=== PATIENT | female | born 1990 | race Caucasian/White ===

== ENCOUNTER 2016-09-17 13:30 | Inpatient (IN) | payer MEDICAID, OTHER ==
[~2016-09-17] VITALS: Ht 144.8 cm; Wt 63.3 kg
--- NOTE | 2016-09-17 17:47 | RADRPT ---
PROCEDURE: OB Ultrasound. CLINICAL INDICATION: Positive test. History of gestational trophoblastic disease. TECHNIQUE: Ultrasound of the pelvis was performed with transabdominal sonography in the axial and sagittal planes. COMPARISON: No prior study is available for comparison. FINDINGS: There is no intrauterine gestational sac. There is a heterogeneous mass within the endometrial tyler l with multiple small cystic regions measuring between 0.2 cm and 0.6 cm. There is a central fluid collection within the endometrium measuring 1.0 x 6.5 x 8.0 cm. The uterus is enlarged measuring 17. 3 x 6.0 x 10.5 cm. The ovaries are not visualized. There is no other pelvic mass or free fluid. IMPRESSION: 1. No intrauterine gestational sac. 2. Abnormal fluid collection and heterogeneous mass with multiple small cystic regions within the e ndometrial canal. This is consistent with gestational trophoblastic disease. 3. Ovaries not visualized. RPTAT: QQ .Cesar Welsh MD, MD Date Time Electronically viewed and signed by .Cesar Welsh MD, on 09/17/2016 17:46 .R/
--- NOTE | 2016-09-17 17:50 | ERD ---
ER Documentation Chief Complaint Date/Time DATE: 09/17/16 TIME: 17:46 Chief Complaint 12 WKS WITH NO VAG BLEED NO ABD PAIN. SENT BY OB FOR SUMI WEBER This is a 26-year-old female who presents to the emergency department today for further evaluation after being told that there was something wrong with her . Patient states she is approximately 12 weeks denies any abdominal pain, vaginal bleeding, nausea vomiting, fevers or chills ROS All systems reviewed and are negative except as per history of present illness. Allergies Allergies: Coded Allergies: No Known Allergy (Unverified , 09/17/16) PMhx/Soc Medical and Surgical Hx: pt denies Surgical Hx Hx Alcohol Use: No Hx Substance Use: No Hx Tobacco Use: No Smoking Status: Current every day smoker Physical Exam Vitals Vital Signs Date Time Temp Pulse Resp B/P Pulse Ox O2 Delivery O2 Flow Rate FiO2 09/17/16 13:36 98.6 94 20 120/74 98 Physical Exam Const: NAD Head: Atraumatic Eyes: Normal Conjunctiva ENT: Normal External Ears, Nose and Mouth. Neck: Full range of motion..~ No meningismus. Resp: Clear to auscultation bilaterally Cardio: Regular rate and rhythm, no murmurs Abd: Soft, non tender, non distended. Normal bowel sounds Skin: No petechiae or rashes Ext: No cyanosis, or edema Neur: Awake and alert Psych: Normal Mood and Affect Result Diagram: 09/17/16 1750 09/17/16 1750 Results 24 hrs Laboratory Tests Test 09/17/16 17:50 Alanine Aminotransferase (ALT/SGPT) 96IU/L Albumin 4.3g/dl Albumin/Globulin Ratio 1.26 Alkaline Phosphatase 87IU/L Anion Gap 19 Aspartate Amino Transf (AST/SGOT) 58IU/L Basophils # 0.110^3/ul Basophils % 0.4% Beta HCG, Quantitative 900442.0mIU/ml Blood Urea Nitrogen 11mg/dl Calcium Level 9.9mg/dl Carbon Dioxide Level 21mmol/L Chloride Level 103mmol/L Creatinine 0.50mg/dl Direct Bilirubin 0.00mg/dl Eosinophils # 0.110^3/ul Eosinophils % 0.9% Globulin 3.40g/dl Glucose Level 139mg/dl Hematocrit 39.7% Hemoglobin 13.5g/dl Indirect Bilirubin 0.0mg/dl Lymphocytes # 2.610^3/ul Lymphocytes % 22.4% Mean Corpuscular Hemoglobin 31.4pg Mean Corpuscular Hemoglobin Concent 34.0g/dl Mean Corpuscular Volume 92.3fl Mean Platelet Volume 10.5fl Monocytes # 0.810^3/ul Monocytes % 6.7% Neutrophils # 8.010^3/ul Neutrophils % 69.3% Nucleated Red Blood Cells # 0.010^3/ul Nucleated Red Blood Cells % 0.0/100WBC Platelet Count 44871^3/UL Potassium Level 3.4mmol/L Red Blood Count 4.3010^6/ul Red Cell Distribution Width 12.6% Sodium Level 140mmol/L Total Bilirubin 0.0mg/dl Total Protein 7.7g/dl White Blood Count 11.510^3/ul Current Medications Medications (Trade) Dose Ordered Sig/Windy Route PRN Reason Start Time Stop Time Status Last Admin Dose Admin Ondansetron HCl (Zofran Inj) 4 mg BRIDGE ORDER PRN IV NAUSEA AND/OR VOMITING 09/17/16 21:00 09/18/16 20:59 Acetaminophen (Tylenol Tab) 650 mg ER BRIDGE PRN PO MILD PAIN/FEVER 09/17/16 21:00 09/18/16 20:59 DIAGNOSTIC IMAGING REPORT Patient: JAVIER HOGAN : 1990 Age: 26 Sex: F MR #: [id number] DOS: 09/17/16 0000 Ordering MD: REJI HOOVER PA-C [facility] Room[facility]Bed: PROCEDURE: OB Ultrasound. CLINICAL INDICATION: Positive test. History of gestational trophoblastic disease. TECHNIQUE: Ultrasound of the pelvis was performed with transabdominal sonography in the axial and sagittal planes. COMPARISON: No prior study is available for comparison. FINDINGS: There is no intrauterine gestational sac. There is a heterogeneous mass within the endometrial canal with multiple small cystic regions measuring between 0.2 cm and 0.6 cm. There is a central fluid collection within the endometrium measuring 1.0 x 6.5 x 8.0 cm. The uterus is enlarged measuring 17.3 x 6.0 x 10.5 cm. The ovaries are not visualized. There is no other pelvic mass or free fluid. IMPRESSION: 1. No intrauterine gestational sac. 2. Abnormal fluid collection and heterogeneous mass with multiple small cystic regions within the endometrial canal. This is consistent with gestational trophoblastic disease. 3. Ovaries not visualized. RPTAT: QQ .Cesar Welsh MD, Date Time Electronically viewed and signed by .Cesar Welsh MD, on 09/17/2016 17:46 .R/ CC: REJI HOOVER PA-C Procedures/MDM This a 26-year-old female who is 12 weeks who presents to the emergency department today for further evaluation and management. Patient was sent from [facility] for a possible molar and D&C. Patient brought in paperwork from the department of obstetrics and gynecology and division of maternal medicine at [facility] that showed a first trimester ultrasound showing no pole was identified and the uterus cavity was noted to be filled with multiple cystlike structures consistent with a molar . The ultrasound findings were discussed with Dr. Garcia at [facility] and she requested that she be sent to her office for further management. Given these ultrasound findings I did do a complete OB workup here in the emergency department. Laboratory work shows an mildly elevated white blood cell count. She is not anemic. Platelets are within normal limits. Potassium is barely mildly decreased otherwise electro lites are within normal limits. Glucose is within normal limits. Liver function is elevated. UA was pending as well as gonorrhea chlamydia was pending at time of admission Rh status O Positive Beta quant hCG 331374.0 Ultrasound shows no intrauterine gestational sac. There is a heterogeneous mass within the endometrial canal with multiple small cystic regions measuring between 0.2 cm and 0.6 cm. There is a central fluid collection within the endometrium measuring 1.0 x 6.5 x 8.0 cm. This is consistent with gestational trophoblastic disease. There is no other pelvic mass or free fluid. Patient did not have any abdominal pain on physical exam. She denies any nausea vomiting. I placed a call to the laborist personnel analyst, Dr. Ortiz, who came to the evaluate the patient. She requested gonorrhea chlamydia testing. There was an in-depth discussion with the patient and her and the decision was made to admit the patient for a D &C. I discussed the patient again with Dr. He and he has placed admission orders. Any further documentation or orders placed will be completed by the attending personnel analyst or the laborist personnel analyst. Patient's vitals are stable at time of signout to Dr. He. Departure Diagnosis: Primary Impression: Gestational trophoblastic disease Condition: REJI Mccallum PA-C Sep 17, 2016 17:50
[2016-09-17 18:18] LABS: ADD SCAN DIFF NO
[2016-09-17 18:22] LABS: BASOPHIL # 0.1 10^3/ul (0.0-0.1); BASOPHILS % 0.4 % (0.0-2.0); EOSINOPHILS # 0.1 10^3/ul (0.0-0.5); EOSINOPHILS % 0.9 % (0.0-7.0); HEMATOCRIT 39.7 % (37.0-47.0); HEMOGLOBIN 13.5 g/dl (12.0-16.0); LYMPHOCYTES # 2.6 10^3/ul (0.8-2.9); LYMPHOCYTES % 22.4 % (15.0-51.0); MEAN CORPUSCULAR HEMOGLOBIN 31.4 pg (29.0-33.0); MEAN CORPUSCULAR VOLUME 92.3 fl (82.0-101.0); MEAN PLATELET VOLUME 10.5 fl (7.4-10.4); MONOCYTE # 0.8 10^3/ul (0.3-0.9); MONOCYTES % 6.7 % (0.0-11.0); NEUTROPHILS % 69.3 % (39.0-77.0); PLATELET COUNT 277 10^3/UL (140-415); RED CELL DISTRIBUTION WIDTH 12.6 % (11.5-14.5); WHITE BLOOD COUNT 11.5 10^3/ul (4.8-10.8)
[2016-09-17 19:50] LABS: ALBUMIN 4.3 g/dl (3.3-4.9); POTASSIUM 3.4 mmol/L (3.5-5.1)
[2016-09-17 19:52] LABS: CREATININE 0.5 mg/dl (0.44-1.00)
[2016-09-17 19:53] LABS: ALBUMIN/GLOBULIN RATIO 1.26; TOTAL PROTEIN 7.7 g/dl (6.1-8.1)
[2016-09-17 19:54] LABS: CALCIUM 9.9 mg/dl (8.4-10.2)
[2016-09-17] MEDS ORDERED: ONDANSETRON 4 MG INJ IV PRN (21:00)
[2016-09-17] MEDS ORDERED: ACETAMINOPHEN 325 MG TAB PO PRN (21:00)
[2016-09-17 21:59] VITALS: TEMP 98.7
[2016-09-17 22:30] VITALS: Ht 144.8 cm; Wt 63.3 kg
[2016-09-17 22:42] VITALS: BP 117/63; RESP 18
[2016-09-18] VITALS (15 sets, daily range): BP systolic 105–117; BP diastolic 58–68; PULSE 78–107; RESP 13–18
--- NOTE | 2016-09-18 00:03 | CONS ---
Date/Time of Note Date/Time of Note DATE: 09/17/16 TIME: 23:53 Assessment/Plan Assessment/Plan Chief Complaint/Hosp Course Complete Molar . Increased risk for GTN due to size and HCG level discussed. HCG elevated > 100,000 Uterine size about 18 weeks size Finding discussed with the patient and her partner in detail. science interpreter was used for interpretation Need for suction every 8 hours as well as preop workup and post suction D&C workup for prolonged period up to 1 year discussed with the patient in detail Increased risk for GTN discussed with the patient. Explained that she needs to have frequent surveillance follow-up with repeat hCG every week and later monthly as well as reliable contraception up to about a year. Possibility of need for chemotherapy in some cases as were discussed with the patient and her partner Increased risk of bleeding during suction criticize and need for blood transfusion also discussed with the patient and her partner in detail. Risk of suction D&C including risk of infection, bleeding, damage to surrounding structures and risk of uterine perforation as well as risk of blood transfusion including but not limited to blood borne infection including HIV, hepatitis B and C and transfusion reactions discussed with the patient in detail. Informed consent obtained Patient will be booked tomorrow in the OR. She understands that the case will be signed off to the upcoming CLINICAL RN. Will keep the patient n.p.o. overnight Type and cross 4 units of blood Checking blood sugar every 4 hours when his n.p.o. and coverage with insulin sliding scale as needed Doxycycline 100 mg IV prior to be taken to the OR, as well as 200 mg oral dose postprocedure CXR Problems: Consultation Date/Type/Reason Admit Date/Time Sep 17, 2016 at 20:31 Date of Consultation: Sep 17, 2016 Type of Consultation: PEDIATRIC DIETICIAN Hx of Present Illness 26-year-old with amenorrhea since March 28, 2016 for the last 24 weeks , was sent from [facility] due to concern for molar noted in ultrasound. Patient denies any vaginal bleeding, abdominal pain, contractions, leaking of fluid , nausea vomiting or any other symptoms. Per patient her cycles has been irregular. was planned. She had one visit when she was 5 weeks with her OB clinic then she missed follow-up until about a couple of days ago due to insurance issues. She had an ultrasound ordered couple of days ago at [facility] that was abnormal due to concern for molar . She was sent to [facility] today and was seen by her OB in the clinic and was then referred to [facility] emergency room for D&C. Patient had an ultrasound here at [facility] that shows the same finding. Uterus enlarged with heterogeneous material concerning for molar noted in pelvic ultrasound. Patient reports history of gestational diabetes in the last 2 pregnancies. Denies any pre-gestational diabetes and never been on antidiabetic medication between pregnancies. She was recently about a month ago started on insulin due to elevated blood sugar. Per patient she uses insulin 4 times a day from 2 different types of insulin but she does not know the name or dosage of her insulin. Past medical history: Gestational diabetes in the last 2 pregnancies Never been tested between the pregnancies Past surgical history: None Social history: Denies smoking, drinking alcohol or using any drugs OB history: Status post 3 LMP March 28, 2016 Cycles has been always irregular Current was planned Father of the baby same for the last 2 pregnancies Denies any history of abnormal Pap or any known gynecologic problem Medication: vitamin Subjective hx not possible: other (Comfortable. Alert and oriented 4 does not appear to be in any distress) Constitutional: no complaints Eyes: no complaints ENT: no complaints Respiratory: no complaints Cardiovascular: no complaints Gastrointestinal: no complaints Genitourinary: no complaints Musculoskeletal: no complaints Skin: no complaints Neurologic: no complaints Endocrine: no complaints Lymphatic: no complaints Psychological: no complaints Immunologic: no complaints Past Medical History Gestational diabetes in the last 2 pregnancies Past Surgical History Past Surgical Hx: no surgical history Family History Significant Family History: no pertinent family hx Social History Alcohol Use: none Smoking Status: Current every day smoker Drug Use: none Exam/Review of Systems Vital Signs Vitals Vital Signs Date Time Temp Pulse Resp B/P Pulse Ox O2 Delivery O2 Flow Rate FiO2 09/17/16 22:42 98.0 73 18 117/63 99 09/17/16 21:59 Room Air Exam Constitutional: alert, oriented, well developed Psych: nl mood/affect, no complaints Head: atraumatic, normocephalic Eyes: EOMI, nl conjunctiva, nl lids ENMT: nl external ears & nose, nl lips & teeth, nl nasal mucosa & septum Neck: non-tender, supple Respiratory: clear to auscultation, normal air movement Cardiovascular: nl pulses, regular rate and rhythm Gastrointestinal: mass, nl liver, spleen, other (A midline mass up to the level of about 2 cm below the umbilicus, soft and nontender consistent with uterus palpable in the pelvis), soft Genitourinary - Female: uterus (Enlarged and soft size about 18 weeks . Nontender to touch no fullness or tenderness in adnexa, adnexa are not palpable) Musculoskeletal: nl extremities to inspection, nl gait and stance Extremities: normal pulses Neurological: DISTRIBUTION TRANSFORMER ASSEMBLER II-XII intact, nl mental status Results Laboratory Tests Test 09/17/16 17:50 09/17/16 23:02 Alanine Aminotransferase (ALT/SGPT) 96IU/L Albumin 4.3g/dl Albumin/Globulin Ratio 1.26 Alkaline Phosphatase 87IU/L Anion Gap 19 Aspartate Amino Transf (AST/SGOT) 58IU/L Basophils # 0.110^3/ul Basophils % 0.4% Beta HCG, Quantitative 300316.0mIU/ml Blood Urea Nitrogen 11mg/dl Calcium Level 9.9mg/dl Carbon Dioxide Level 21mmol/L Chloride Level 103mmol/L Creatinine 0.50mg/dl Direct Bilirubin 0.00mg/dl Eosinophils # 0.110^3/ul Eosinophils % 0.9% Globulin 3.40g/dl Glucose Level 139mg/dl Hematocrit 39.7% Hemoglobin 13.5g/dl Indirect Bilirubin 0.0mg/dl Lymphocytes # 2.610^3/ul Lymphocytes % 22.4% Mean Corpuscular Hemoglobin 31.4pg Mean Corpuscular Hemoglobin Concent 34.0g/dl Mean Corpuscular Volume 92.3fl Mean Platelet Volume 10.5fl Monocytes # 0.810^3/ul Monocytes % 6.7% Neutrophils # 8.010^3/ul Neutrophils % 69.3% Nucleated Red Blood Cells # 0.010^3/ul Nucleated Red Blood Cells % 0.0/100WBC Platelet Count 62293^3/UL Potassium Level 3.4mmol/L Red Blood Count 4.3010^6/ul Red Cell Distribution Width 12.6% Sodium Level 140mmol/L Total Bilirubin 0.0mg/dl Total Protein 7.7g/dl White Blood Count 11.510^3/ul Bedside Glucose 106mg/dL Result Diagram: 09/17/16 1750 09/17/16 1750 Results 24 hrs Laboratory Tests Test 09/17/16 17:50 09/17/16 23:02 Alanine Aminotransferase (ALT/SGPT) 96 H Albumin 4.3 Albumin/Globulin Ratio 1.26 Alkaline Phosphatase 87 Anion Gap 19 H Aspartate Amino Transf (AST/SGOT) 58 H Basophils # 0.1 Basophils % 0.4 Beta HCG, Quantitative 523902.0 Blood Urea Nitrogen 11 Calcium Level 9.9 Carbon Dioxide Level 21 Chloride Level 103 Creatinine 0.50 Direct Bilirubin 0.00 Eosinophils # 0.1 Eosinophils % 0.9 Globulin 3.40 H Glucose Level 139 Hematocrit 39.7 Hemoglobin 13.5 Indirect Bilirubin 0.0 Lymphocytes # 2.6 Lymphocytes % 22.4 Mean Corpuscular Hemoglobin 31.4 Mean Corpuscular Hemoglobin Concent 34.0 Mean Corpuscular Volume 92.3 Mean Platelet Volume 10.5 H Monocytes # 0.8 Monocytes % 6.7 Neutrophils # 8.0 H Neutrophils % 69.3 Nucleated Red Blood Cells # 0.0 Nucleated Red Blood Cells % 0.0 Platelet Count 277 Potassium Level 3.4 L Red Blood Count 4.30 Red Cell Distribution Width 12.6 Sodium Level 140 Total Bilirubin 0.0 L Total Protein 7.7 White Blood Count 11.5 H Bedside Glucose 106 Medications Medications Current Medications Lactated Ringer's (Lr) 1,000 ml @ 125 mls/hr Q8H IV ; Start 09/18/16 at 00:00 Procedures Procedures PROCEDURE: OB Ultrasound. CLINICAL INDICATION: Positive test. History of gestational trophoblastic disease. TECHNIQUE: Ultrasound of the pelvis was performed with transabdominal sonography in the axial and sagittal planes. COMPARISON: No prior study is available for comparison. FINDINGS: There is no intrauterine gestational sac. There is a heterogeneous mass within the endometrial canal with multiple small cystic regions measuring between 0.2 cm and 0.6 cm. There is a central fluid collection within the endometrium measuring 1.0 x 6.5 x 8.0 cm. The uterus is enlarged measuring 17.3 x 6.0 x 10.5 cm. The ovaries are not visualized. There is no other pelvic mass or free fluid. IMPRESSION: 1. No intrauterine gestational sac. 2. Abnormal fluid collection and heterogeneous mass with multiple small cystic regions within the endometrial canal. This is consistent with gestational trophoblastic disease. 3. Ovaries not visualized. RPTAT: KENDRICK CHURCH MD Sep 18, 2016 00:03
[2016-09-18] MEDS: LACTATED RINGER'S 1,000 ML IV SCH ×2 (00:29→10:15)
[2016-09-18] MEDS ORDERED: DOXYCYCLINE 100 MG in SOD CHLORIDE 0.9% 250 ML IVPB SCH ×2 (00:30→00:32)
--- NOTE | 2016-09-18 00:52 | RADRPT ---
PROCEDURE: XR Chest. CLINICAL INDICATION: Molar . TECHNIQUE: PA and lateral chest x-ray. COMPARISON: None. FINDINGS: The cardiomediastinal silhouette is unremarkable. There is hypoventilation with bibasilar atelectasi s. There is no pleural effusion or pneumothorax. The osseous structures are unremarkable. IMPRESSION: Hypoventilation with atelectasis. RPTAT: HMVK .Negro Delgadillo MD, MD Date Time Electronically viewed and signed by .Negro Delgadillo MD, MD on 09/18/2016 00:52 .K/
[2016-09-18] MEDS ORDERED: GLUCOSE GEL 15 GRAM TUBE PO PRN ×2 (01:00)
[2016-09-18] MEDS ORDERED: DEXTROSE 50% 50 ML SYRINGE IV PRN ×2 (01:00)
[2016-09-18] MEDS ORDERED: GLUCOSE GEL 15 GRAM TUBE BUCCAL PRN (01:00)
[2016-09-18] MEDS: INSULIN ASPART [NOVOLOG] 3 ML PEN SC SCH ×5 (01:00→17:15)
[2016-09-18] MEDS ORDERED: GLUCAGON 1 MG INJ IM PRN (01:00)
[2016-09-18 08:04] LABS: ADD SCAN DIFF NO
[2016-09-18 08:10] LABS: BASOPHILS % 0.4 % (0.0-2.0); EOSINOPHILS # 0.1 10^3/ul (0.0-0.5); EOSINOPHILS % 1.2 % (0.0-7.0); HEMOGLOBIN 12.8 g/dl (12.0-16.0); LYMPHOCYTES # 2.6 10^3/ul (0.8-2.9); LYMPHOCYTES % 26.6 % (15.0-51.0); MEAN CORPUSCULAR HEMOGLOBIN 31.8 pg (29.0-33.0); MEAN CORPUSCULAR HGB CONC 34.6 g/dl (32.0-37.0); MEAN PLATELET VOLUME 10.2 fl (7.4-10.4); MONOCYTE # 0.7 10^3/ul (0.3-0.9); MONOCYTES % 7.3 % (0.0-11.0); NEUTROPHIL # 6.3 10^3/ul (1.6-7.5); NEUTROPHILS % 64.1 % (39.0-77.0); PLATELET COUNT 246 10^3/UL (140-415); RED BLOOD COUNT 4.02 10^6/ul (4.20-5.40); RED CELL DISTRIBUTION WIDTH 12.4 % (11.5-14.5); WHITE BLOOD COUNT 9.9 10^3/ul (4.8-10.8)
--- NOTE | 2016-09-18 13:30 | HP ---
Date/Time of Note Date/Time of Note DATE: 09/18/16 TIME: 13:17 OB - History Hx of Present Free Text/Dictation September 18, 2069 Preoperative note Last Menstrual Period: Mar 28, 2017 : 4 Para: 3 Ultrasounds: No ultrasounds Abnormal Ultrasound Findings: This patient is a 26 years old 4 para 3 with EDC of March 28, 2016 was referred from her clinic due to abnormal findings on Holter Here in the clinic on ultrasound revealed a typical hydatidiform mole with no evidence of fetus Her beta hCG level was close to 200,000 patient was admitted in the hospital for dilatation and evacuation On examination she is a well-developed well-nourished lady Her ear nose throat appear to be normal Neck is normal no neck vein distention no thyromegaly no lymph node enlargement anywhere in the body Her chest is clear to auscultation her precaution Heart normal sinus rhythm no murmur breasts are soft free of any mass Abdomen is soft this in about 16-17 weeks size no heart tone On pelvic examination vulva vagina is normal cervix is closed and the fundus is about 15-16 weeks sized 27 Laboratory Tests Test 09/17/16 17:50 09/17/16 23:02 09/18/16 01:52 09/18/16 05:28 Alanine Aminotransferase (ALT/SGPT) 96IU/L Albumin 4.3g/dl Albumin/Globulin Ratio 1.26 Alkaline Phosphatase 87IU/L Anion Gap 19 Aspartate Amino Transf (AST/SGOT) 58IU/L Basophils # 0.110^3/ul Basophils % 0.4% Beta HCG, Quantitative 824739.0mIU/ml Blood Urea Nitrogen 11mg/dl Calcium Level 9.9mg/dl Carbon Dioxide Level 21mmol/L Chloride Level 103mmol/L Creatinine 0.50mg/dl Direct Bilirubin 0.00mg/dl Eosinophils # 0.110^3/ul Eosinophils % 0.9% Globulin 3.40g/dl Glucose Level 139mg/dl Hematocrit 39.7% Hemoglobin 13.5g/dl Indirect Bilirubin 0.0mg/dl Lymphocytes # 2.610^3/ul Lymphocytes % 22.4% Mean Corpuscular Hemoglobin 31.4pg Mean Corpuscular Hemoglobin Concent 34.0g/dl Mean Corpuscular Volume 92.3fl Mean Platelet Volume 10.5fl Monocytes # 0.810^3/ul Monocytes % 6.7% Neutrophils # 8.010^3/ul Neutrophils % 69.3% Nucleated Red Blood Cells # 0.010^3/ul Nucleated Red Blood Cells % 0.0/100WBC Platelet Count 25687^3/UL Potassium Level 3.4mmol/L Red Blood Count 4.3010^6/ul Red Cell Distribution Width 12.6% Sodium Level 140mmol/L Total Bilirubin 0.0mg/dl Total Protein 7.7g/dl White Blood Count 11.510^3/ul Bedside Glucose 106mg/dL 108mg/dL 111mg/dL Test 09/18/16 07:43 09/18/16 07:57 09/18/16 12:48 Bedside Glucose 111mg/dL 79mg/dL Basophils # 0.010^3/ul Basophils % 0.4% Eosinophils # 0.110^3/ul Eosinophils % 1.2% Hematocrit 37.0% Hemoglobin 12.8g/dl Lymphocytes # 2.610^3/ul Lymphocytes % 26.6% Mean Corpuscular Hemoglobin 31.8pg Mean Corpuscular Hemoglobin Concent 34.6g/dl Mean Corpuscular Volume 92.0fl Mean Platelet Volume 10.2fl Monocytes # 0.710^3/ul Monocytes % 7.3% Neutrophils # 6.310^3/ul Neutrophils % 64.1% Nucleated Red Blood Cells # 0.010^3/ul Nucleated Red Blood Cells % 0.0/100WBC Platelet Count 81420^3/UL Red Blood Count 4.0210^6/ul Red Cell Distribution Width 12.4% White Blood Count 9.910^3/ul Current Medications Medications (Trade) Dose Ordered Sig/Windy Route PRN Reason Start Time Stop Time Status Last Admin Dose Admin Ondansetron HCl (Zofran Inj) 4 mg BRIDGE ORDER PRN IV NAUSEA AND/OR VOMITING 09/17/16 21:00 09/18/16 20:59 Acetaminophen 650 mg 650 mg ER BRIDGE PRN PO MILD PAIN/FEVER 09/17/16 21:00 09/18/16 20:59 Lactated Ringer's 1,000 ml @ 125 mls/hr Q8H IV 09/18/16 00:00 09/18/16 10:15 Doxycycline Hyclate 100 mg/ Sodium Chloride 250 ml @ 250 mls/hr ONCE IVPB 09/18/16 00:30 09/18/16 00:32 DC Doxycycline Hyclate/Sodium Chloride (Vibramycin/NS) 250 ml @ 250 mls/hr ONCE IVPB 09/18/16 00:32 09/19/16 00:29 Insulin Aspart (Novolog Insulin Pen) NOVOLOG *MILD* ALGORI... Q4 SC 09/18/16 01:00 Miscellaneous Information (* Miscellaneous Pharmacy Order) HYPOGLYCEMIA PROTOCOL w... ONCE ONCE XX 09/18/16 01:00 09/18/16 01:06 DC Miscellaneous Information (* Miscellaneous Pharmacy Order) Discontinue Glyburide, Glipizide,... ONCE ONCE XX 09/18/16 01:00 09/18/16 01:06 DC Miscellaneous Information (* Miscellaneous Pharmacy Order) Discontinue all previ... ONCE ONCE XX 09/18/16 01:00 09/18/16 01:06 DC Miscellaneous Information 1 ea NOTE XX 09/18/16 01:00 Glucose (Glutose) 15 gm Q15M PRN PO DECREASED GLUCOSE 09/18/16 01:00 Glucose (Glutose) 22.5 gm Q15M PRN PO DECREASED GLUCOSE 09/18/16 01:00 Dextrose (D50w Syringe) 25 ml Q15M PRN IV DECREASED GLUCOSE 09/18/16 01:00 Dextrose (D50w Syringe) 50 ml Q15M PRN IV DECREASED GLUCOSE 09/18/16 01:00 Glucagon (Glucagen) 1 mg Q15M PRN IM DECREASED GLUCOSE 09/18/16 01:00 Glucose (Glutose) 15 gm Q15M PRN BUCCAL DECREASED GLUCOSE 09/18/16 01:00 Influenza Virus Vaccine (Fluzone) 0.5 ml ONCE ONCE IM* 09/20/16 09:00 09/20/16 09:01 extremities normal no edema no varicosities knee jerk reflexes normal With these findings I discussed again her situation through mask layout designer the risks associated with an non-effusion evacuation of this stage of , possible need for blood transfusion, possible continuation of active bleeding and need for emergency hysterectomy and her inability to conceive after such procedure already discussed with her her and her warp picker through an mask layout designer old member of the family understand the diagnosis to procedure and possible complication of this condition She was advised about the need for continuation of care repeated beta-hCGs in the past repeated ultrasound and no at least for 3 month End of dictation thank you Past Family/Social History * Past Medical, Surgical, Family and Obstetric Histories reviewed from chart. OB Admission Exam Vital Signs Vital Signs Vital Signs Date Time Temp Pulse Resp B/P Pulse Ox O2 Delivery O2 Flow Rate FiO2 09/18/16 07:50 98.5 73 16 117/62 98 09/17/16 21:59 Room Air Last 72 hourBlood Glucose Bedside Glucose - 72 Hours Test 09/17/16 23:02 09/18/16 01:52 09/18/16 05:28 09/18/16 07:43 Bedside Glucose 106mg/dL (70-220) 108mg/dL (70-220) 111mg/dL (70-220) 111mg/dL (70-220) Test 09/18/16 12:48 Bedside Glucose 79mg/dL (70-220) Last 72 hours Lab Results CBC & BMP 09/17/16 17:50 09/18/16 07:57 Liver Function Test 09/17/16 17:50 Alanine Aminotransferase (ALT/SGPT) 96 H Albumin 4.3 Alkaline Phosphatase 87 Aspartate Amino Transf (AST/SGOT) 58 H Direct Bilirubin 0.00 Total Protein 7.7 LIYA WELSH MD Sep 18, 2016 13:29
[2016-09-18] MEDS ORDERED: PROPOFOL 20 ML ONE (13:51)
[2016-09-18] MEDS ORDERED: MIDAZOLAM 1 MG/ML 2 ML INJ ONE (13:51)
[2016-09-18] MEDS ORDERED: FENTAnyl 50 MCG/ML VIAL ONE (13:51)
[2016-09-18] MEDS ORDERED: HYDROmorphONE (0.2 MG/ML) 10ML SYG IV PRN ×3 (14:30)
[2016-09-18] MEDS ORDERED: METOCLOPRAMIDE 10 MG INJ IV PRN (14:30)
[2016-09-18] MEDS ORDERED: ONDANSETRON 4 MG INJ IV PRN (14:30)
[2016-09-18] MEDS ORDERED: morphine (1 MG/ML) 10ML SYRINGE IV PRN ×3 (14:30)
[2016-09-18] MEDS ORDERED: FENTAnyl 50 MCG/ML VIAL IV PRN ×2 (14:30)
[2016-09-18] MEDS ORDERED: DIPHENHYDRAMINE 50 MG INJ IV PRN (14:30)
[2016-09-18] MEDS ORDERED: MEPERIDINE 25 MG INJ IV PRN (14:30)
[2016-09-18] MEDS ORDERED: EPHEDrine SULFATE 50 MG/5 ML SYG IV PRN (14:30)
[2016-09-18] MEDS ORDERED: OXYTOCIN 10 UNIT INJ ONE (14:33)
[2016-09-18] MEDS ORDERED: KETOROLAC 30 MG INJ ONE (14:34)
[2016-09-18] MEDS ORDERED: ONDANSETRON 4 MG INJ ONE (14:34)
[2016-09-18] MEDS ORDERED: METOCLOPRAMIDE 10 MG INJ ONE (14:34)
[2016-09-18] MEDS ORDERED: DEXAMETHASONE 4 MG/ML 1 ML INJ ONE (14:34)
[2016-09-18] MEDS ORDERED: PHENYLephrine (100 MCG/ML) 5ML SYG ONE (14:36)
[2016-09-18] MEDS ORDERED: HYDROCODONE/APAP (5/325) TAB PO PRN ×2 (15:30→19:00)
--- NOTE | 2016-09-18 15:51 | OPR ---
DATE OF OPERATION: 09/18/2016 PREOPERATIVE DIAGNOSES: Intrauterine 16 weeks. Hydatidiform mole. POSTOPERATIVE DIAGNOSES: Intrauterine 16 weeks. Hydatidiform mole. OPERATION PERFORMED: Dilatation and evacuation of the uterine contents. DESCRIPTION OF PROCEDURE: Under satisfactory general anesthesia, the patient was placed in the lithotomy position. The vaginal and abdominal area was prepped and patient was given a gram of Ancef as a prophylactic measure. A bimanual pelvic examination revealed the uterus to be about 14 weeks' size. Weighted speculum was placed inside the vagina and the anterior lip of the cervix was picked up by a tenaculum. The cervix was dilated up to 10 mm. Then , using a 10 mm cannula, the uterine contents was evacuated. Then the smaller curet was used to ensure total evacuation. At the end of the procedure, a pelvic exam showed that the uterus is contracted and the bleeding from the uterus was minimal. At this time, the procedure was terminated and the patient was transferred to the recovery room in stable condition. Dictated By: LIYA HARTMANN/OSITO Conf#: [id number] DID#: [id number] NALLELY
[2016-09-18] MEDS ORDERED: [UNRECOGNIZED DRUG - OTHER] IV SCH (16:30)
[2016-09-18] MEDS ORDERED: DEXTROSE 5% IV SCH (16:30)
[2016-09-18] MEDS ORDERED: OXYTOCIN IV SCH (16:30)
[2016-09-18 17:14] LABS: HEMATOCRIT 36.6 % (37.0-47.0); HEMOGLOBIN 12.6 g/dl (12.0-16.0)
[2016-09-20] MEDS ORDERED: INFLUENZA VIRUS VACCINE 0.5 ML (DISPENSING) IM* ONE (09:00)
== END 2016-09-18 20:53 | disposition home or self-care (01) | DRG 775 ==
LOC: FTE 13:30 → PP2 20:31 → UNDOADMIN 20:31 → PP2 20:32 → UNDOADMIN 22:05
PROVIDERS: ADMIT Obstetrics & Gynecology Obstetrics; ATTEND Obstetrics & Gynecology Obstetrics
PROC: 10D07Z8 Extraction of Products of Conception, Other, Via Natural or Artificial Opening (ICD-10-PCS; principal; 2016-09-18 13:00)
DX: O01.0 Classical hydatidiform mole (principal); I10 Essential (primary) hypertension; E11.9 Type 2 diabetes mellitus without complications
CPT/HCPCS: 36415; 71020; 76805; 80053; 82962; 84702; 85014; 85018; 85025; 86850; 86900; 86901; 86920; 88305; J1100; J1815; J1885; J2250; J2370; J2405; J2590; J2765; J3010; J7050; J7120; J7121

== ENCOUNTER 2017-06-16 20:52 | Emergency (ER) | payer MEDICAID ==
[~2017-06-16] VITALS: Ht 157.5 cm; Wt 61.0 kg
[2017-06-16 21:18] VITALS: Ht 157.5 cm; Wt 61.0 kg
[2017-06-16] MEDS ORDERED: SOD CHLORIDE 0.9% 1,000 ML IV STA (23:28)
[2017-06-16] MEDS ORDERED: ONDANSETRON 4 MG INJ IV STA (23:28)
[2017-06-16] MEDS ORDERED: morphine 4 MG/ML VIAL IV STA (23:28)
--- NOTE | 2017-06-16 23:35 | ERD ---
ER Documentation Chief Complaint Chief Complaint Lt flank x5 days. Seen by clinic 06/15, dx w/UTI. Unable to get meds HPI 27-year-old female presents here in emergency department for complaints of left flank pain for 5 days, patient was seen by an outpatient clinic yesterday, was diagnosed of urinary tract infection and possible early pyelonephritis, was not able to get antibiotics and medications that was prescribed to her because pharmacies were closed. Patient is complaining of left knee pain, sharp pain, 6 /10 scale, not better or worse with anything. Patient denies any hematuria but complains of dysuria burning pain 4/10 scale. Patient started to have fever today. Patient denies any nausea or vomiting. ROS All systems reviewed and are negative except as per history of present illness. Medications Home Meds Active Scripts Acetaminophen* (Tylophen*) 500 Mg Capsule, 1 CAP PO Q6H Y for PAIN AND OR ELEVATED TEMP, #20 CAP Prov:IRAIDA ROMERO NP 06/17/17 Ibuprofen* (Motrin*) 400 Mg Tab, 400 MG PO Q6H Y for PAIN AND OR ELEVATED TEMP, #30 TAB Prov:IRAIDA ROMERO NP 06/17/17 Hydrocodone/Acetaminophen ([place] 5-325 Tablet) 1 Each Tablet, 1 TAB PO Q6H Y for SEVERE PAIN LEVEL 7-10, #20 TAB Prov:IRAIDA ROMERO NP 06/17/17 Phenazopyridine Hcl* (Pyridium*) 200 Mg Tab, 200 MG PO TID Y for URINARY PAIN, # 6 TAB Prov:IRAIDA ROMERO NP 06/17/17 Ciprofloxacin Hcl* (Ciprofloxacin Hcl*) 500 Mg Tablet, 500 MG PO BID for 10 Days , TAB Prov:IRAIDA ROMERO NP 06/17/17 Reported Medications [none] Unknown Strength No Conflict Check 06/16/17 Allergies Allergies: Coded Allergies: No Known Allergy (Unverified , 09/17/16) PMhx/Soc History of Surgery: Yes (OBGYN Molar ) Anesthesia Reaction: No Hx Neurological Disorder: No Hx Respiratory Disorders: No Hx Cardiac Disorders: No Hx Psychiatric Problems: No Hx Miscellaneous Medical Probl: Yes (COMPLETE MOLAR / Diabetes) Hx Alcohol Use: Yes (Socially) Hx Substance Use: No Hx Tobacco Use: No Smoking Status: Never smoker FmHx Family History: No coronary disease, No diabetes, No other Physical Exam Vitals Vital Signs Date Time Temp Pulse Resp B/P Pulse Ox O2 Delivery O2 Flow Rate FiO2 06/17/17 01:09 98.0 96 18 116/70 98 Room Air 06/16/17 21:18 102.0 140 20 128/72 98 Physical Exam GENERAL: The patient is well developed and appropriate for usual state of health, in no apparent distress. CHEST: Clear to auscultation bilaterally. There are no rales, wheezes or rhonchi. HEART: Regular rate and rhythm. No murmurs, clicks, rubs or gallops. No S3 or S4. ABDOMEN: Soft, nontender and nondistended. Good bowel sounds. No rebound or guarding. No gross peritonitis. No gross organomegaly or masses. No Rey sign or McBurney point tenderness. BACK: No midline tenderness. Noted left CVA tenderness. EXTREMITIES: Equal pulses bilaterally. There is no peripheral clubbing, cyanosis or edema. No focal swelling or erythema. Full range of motion. Grossly neurovascularly intact. NEURO: Alert and oriented. Cranial nerves 2-12 intact. Motor strength in all 4 extremities with 5/5 strength. Sensation grossly intact. Normal speech and gait. SKIN: There is no apparent rash or petechia. The skin is warm and dry. HEMATOLOGIC AND LYMPHATIC: There is no evidence of excessive bruising or lymphedema. No gross cervical, axillary, or inguinal lymphadenopathy. Result Diagram: 06/16/17 2341 06/16/17 2341 Results 24 hrs Laboratory Tests Test 06/16/17 23:40 06/16/17 23:41 06/16/17 23:43 06/17/17 01:04 Bedside Urine pH (LAB) 5.5 Bedside Urine Protein (LAB) Trace Bedside Urine Glucose (UA) 0.50% Bedside Urine Ketones (LAB) 3+ Bedside Urine Blood 2+ Bedside Urine Nitrite (LAB) Negative Bedside Urine Leukocyte Esterase (L Trace White Blood Count 13.110^3/ul Red Blood Count 5.0810^6/ul Hemoglobin 16.0g/dl Hematocrit 45.2% Mean Corpuscular Volume 89.0fl Mean Corpuscular Hemoglobin 31.5pg Mean Corpuscular Hemoglobin Concent 35.4g/dl Red Cell Distribution Width 11.5% Platelet Count 47199^3/UL Mean Platelet Volume 10.5fl Neutrophils % 80.0% Lymphocytes % 10.7% Monocytes % 8.1% Eosinophils % 0.2% Basophils % 0.3% Nucleated Red Blood Cells % 0.0/100WBC Neutrophils # 10.510^3/ul Lymphocytes # 1.410^3/ul Monocytes # 1.110^3/ul Eosinophils # 0.010^3/ul Basophils # 0.010^3/ul Nucleated Red Blood Cells # 0.010^3/ul Sodium Level 138mmol/L Potassium Level 4.3mmol/L Chloride Level 96mmol/L Carbon Dioxide Level 26mmol/L Anion Gap 20 Blood Urea Nitrogen 18mg/dl Creatinine 0.62mg/dl Glucose Level 361mg/dl Calcium Level 11.5mg/dl Total Bilirubin 0.5mg/dl Direct Bilirubin 0.00mg/dl Indirect Bilirubin 0.5mg/dl Aspartate Amino Transf (AST/SGOT) 31IU/L Alanine Aminotransferase (ALT/SGPT) 93IU/L Alkaline Phosphatase 176IU/L Total Protein 9.1g/dl Albumin 4.7g/dl Globulin 4.40g/dl Albumin/Globulin Ratio 1.06 Lipase 81U/L Urine Color YELLOW Urine Clarity CLOUDY Urine pH 6.0 Urine Specific [place] 1.026 Urine Ketones 2+mg/dL Urine Nitrite NEGATIVEmg/dL Urine Bilirubin NEGATIVEmg/dL Urine Urobilinogen NEGATIVEmg/dL Urine Leukocyte Esterase 3+Nabil/ul Urine Microscopic RBC 10/HPF Urine Microscopic WBC > 182/HPF Urine Squamous Epithelial Cells FEW/HPF Urine Bacteria FEW/HPF Urine Hemoglobin 2+mg/dL Urine Glucose 3+mg/dL Urine Total Protein NEGATIVEmg/dl Bedside Glucose 285mg/dL Current Medications Medications (Trade) Dose Ordered Sig/Widny Route PRN Reason Start Time Stop Time Status Last Admin Dose Admin Sodium Chloride (NS) 1,000 ml @ 1,000 mls/hr Q1H STAT IV 06/16/17 23:28 06/17/17 00:27 DC 06/16/17 23:34 Morphine Sulfate (morphine) 4 mg ONCE STAT IV 06/16/17 23:28 06/16/17 23:29 DC 06/16/17 23:34 Ondansetron HCl 4 mg 4 mg ONCE STAT IV 06/16/17 23:28 06/16/17 23:29 DC 06/16/17 23:34 Ceftriaxone Sodium (Rocephin) 50 ml @ 100 mls/hr ONCE ONCE IVPB 06/17/17 00:30 06/17/17 00:59 DC 06/17/17 00:38 Patient was given medication for pain here in emergency department, after treatment, patient verbalized feeling much better. Patient's pain is improved. Normal saline IV bolus was given here in emergency department for rehydration, patient tolerated IV fluids. IV Rocephin was given here in emergency department , tolerated medication well. PROCEDURE: CT Abdomen and Pelvis without contrast. CLINICAL INDICATION: Abdominal pain TECHNIQUE: CT scan of the abdomen and pelvis without contrast was performed on a multidetector high-resolution CT scanner. The patient was scanned without intravenous contrast. Coronal and sagittal reformatted images were obtained from the axial source images. Images were reviewed on a high-resolution PACS workstation. The total exam CTDI equals 7.85 mGy and the total exam DLP equals 452.52 mGy-cm. One or more the following dose reduction techniques were utilized: Automated exposure control, adjustment of the mA and / or kV according to patient's size, or use of iterative reconstruction technique. DICOM images are available. COMPARISON: None. FINDINGS: The lung bases are clear. Food material/debris and air is seen in the stomach. Appearance of minimal hepatic steatosis. There may be a tiny calcified granuloma in the right lobe of the liver. No abnormality seen in the gallbladder , spleen, pancreas, adrenals or kidneys. No abdominal aortic aneurysm is seen. No biliary dilatation is seen. No abnormality seen in the bladder. No definite abnormality of the uterus or adnexal regions is seen on CT. No definite abnormality of the colon is seen. There is an unremarkable appendix. No dilated small bowel loops are seen. No enlarged lymph nodes are seen in the abdomen or pelvis. No pneumoperitoneum is seen. Small scattered likely bone islands. IMPRESSION: Minimal hepatic steatosis. Please see above. RPTAT: HJES .Taqueria Wells MD, MD Date Time Electronically viewed and signed by .Taqueria Wells MD, MD on 06/17/2017 00:17 .S/ Procedures/MDM Medical Decision Making: Symptoms most likely is consistent with pyelonephritis. there is low suspicion for abdominal emergencies at this time. Patients abdominal exam is normal at this time. Patients radiology exam does not show any abdominal emergencies at this time. There is low suspicion for appendicitis, cholecystitis, abdominal aortic aneurysms or peritonitis at this time. There is low suspicion for sepsis. Patient appears well and is hemodynamically stable. Outpatient management is appropriate at this time. Patient's diabetic symptoms have stabilized here in the emergency department and appear appropriate for outpatient management. No evidence at this time of diabetic ketoacidosis, hyperosmolar syndrome, or severe systemic infection. Disposition: Home. Condition: Stable Prescription ciprofloxacin, Pyridium, [place], ibuprofen and Tylenol Instructions: Patient is advised to take medications as prescribed. Patient is advised to rest, increase fluid intake and do brat diet for next 1-2 days and progress as tolerated. Patient is advised that if symptoms are worse, severe abdominal pain, uncontrolled vomiting, high fever, severe flank pain, worst signs and symptoms, to return to the emergency department immediately. Otherwise, patient can follow up with primary care doctor in 5-7 days. Disclaimer: Inadvertent spelling and grammatical errors are likely due to EHR/ dictation software use and do not reflect on the overall quality of patient care. Also, please note that the electronic time recorded on this note does not necessarily reflect the actual time of the patient encounter. Departure Diagnosis: Primary Impression: Pyelonephritis Additional Impression: Hyperglycemia Condition: Stable Patient Instructions: Hyperglycemia (High Blood Sugar), Pyelonephritis, Female (Adult) Additional Instructions: Patient is advised to take medications as prescribed. Patient is advised to rest, increase fluid intake and do brat diet for next 1-2 days and progress as tolerated. Patient is advised that if symptoms are worse, severe abdominal pain , uncontrolled vomiting, high fever, severe flank pain, worst signs and symptoms , to return to the emergency department immediately. Otherwise, patient can follow up with primary care doctor in 5-7 days. IRAIDA ROMERO NP Jun 16, 2017 23:35
[2017-06-16 23:41] LABS: URINE BLOOD (Dip) POC 2+ (NEGATIVE)
[2017-06-16 23:52] LABS: BASOPHILS % 0.3 % (0.0-2.0); EOSINOPHILS % 0.2 % (0.0-7.0); HEMATOCRIT 45.2 % (37.0-47.0); LYMPHOCYTES # 1.4 10^3/ul (0.8-2.9); LYMPHOCYTES % 10.7 % (15.0-51.0); MEAN CORPUSCULAR HEMOGLOBIN 31.5 pg (29.0-33.0); MEAN CORPUSCULAR HGB CONC 35.4 g/dl (32.0-37.0); MEAN PLATELET VOLUME 10.5 fl (7.4-10.4); MONOCYTE # 1.1 10^3/ul (0.3-0.9); MONOCYTES % 8.1 % (0.0-11.0); NEUTROPHIL # 10.5 10^3/ul (1.6-7.5); PLATELET COUNT 281 10^3/UL (140-415); RED BLOOD COUNT 5.08 10^6/ul (4.20-5.40); RED CELL DISTRIBUTION WIDTH 11.5 % (11.5-14.5); WHITE BLOOD COUNT 13.1 10^3/ul (4.8-10.8)
[2017-06-17 00:10] LABS: ALBUMIN 4.7 g/dl (3.3-4.9); ALBUMIN/GLOBULIN RATIO 1.06; BILIRUBIN,INDIRECT 0.5 mg/dl (0-1.1); BILIRUBIN,TOTAL 0.5 mg/dl (0.2-1.3); CALCIUM 11.5 mg/dl (8.4-10.2); CREATININE 0.62 mg/dl (0.44-1.00); POTASSIUM 4.3 mmol/L (3.5-5.1); TOTAL PROTEIN 9.1 g/dl (6.1-8.1)
--- NOTE | 2017-06-17 00:17 | RADRPT ---
PROCEDURE: CT Abdomen and Pelvis without contrast. CLINICAL INDICATION: Abdominal pain TECHNIQUE: CT scan of the abdomen and pelvis without contrast was performed on a multidetector hig h-resolution CT scanner. The patient was scanned without intravenous contrast. Coronal and sagittal reformatted images were obtained from the axial source images. Images were reviewed on a high-resol [email or web address] PACS workstation. The total exam CTDI equals 7.85 mGy and the total exam DLP equals 452.52 mGy -cm. One or more the following dose reduction techniques were utilized: Automated exposure control, adjus tment of the mA and / or kV according to patient's size, or use of iterative reconstruction techniqu e. DICOM images are available. COMPARISON: None. FINDINGS: The lung bases are clear. Food material/debris and air is seen in the stomach. Appearance of minimal hepatic steatosis. There may be a tiny calcified granuloma in the right lobe of the liver. No abnor mality seen in the gallbladder, spleen, pancreas, adrenals or kidneys. No abdominal aortic aneurysm is seen. No biliary dilatation is seen. No abnormality seen in the bladder. No definite abnormality of the uterus or adnexal regions is seen on CT. No definite abnormality of the colon is seen. There is an unremarkable appendix. No dilated small bowel loops are seen. No enlarged lymph nodes are seen in the abdomen or pelvis. No pneumoperitoneum is seen. Small scattered likely bone islands. IMPRESSION: Minimal hepatic steatosis. Please see above. RPTAT: HJES .Taqueria Wells MD, Date Time Electronically viewed and signed by .Taqueria Wells MD, on 06/17/2017 00:17 .S/
[2017-06-17 00:18] LABS: ADD UMIC YES; UR ASCORBIC ACID NEGATIVE (NEGATIVE); UR BACTERIA FEW /HPF (NONE SEEN); UR BILIRUBIN (Dip) NEGATIVE (NEGATIVE); UR BLOOD (Dip) 2+ mg/dL (NEGATIVE); UR CLARITY CLOUDY (CLEAR); UR COLOR YELLOW (YELLOW); UR GLUCOSE (Dip) 3+ mg/dL (NEGATIVE); UR KETONES (Dip) 2+ mg/dL (NEGATIVE); UR LEUKOCYTE ESTERASE (Dip) 3+ Leu/ul (NEGATIVE); UR NITRITE (Dip) NEGATIVE (NEGATIVE); UR RBC 10 /HPF (0-5); UR SPECIFIC GRAVITY (Dip) 1.026 (1.003-1.030); UR SQUAMOUS EPITHELIAL CELL FEW /HPF (FEW); UR TOTAL PROTEIN (Dip) NEGATIVE (NEGATIVE); UR UROBILINOGEN (Dip) NEGATIVE (NEGATIVE)
[2017-06-17] MEDS ORDERED: PHEN-538 PO (00:30)
[2017-06-17] MEDS ORDERED: HYDR-906 PO (00:30)
[2017-06-17] MEDS ORDERED: CEFTRIAXONE 1 GM/50 ML (PMX) 50 ML IVPB ONE (00:30)
[2017-06-17] MEDS ORDERED: IBUP400T22 PO (00:30)
[2017-06-17] MEDS ORDERED: CIPR500T4 PO (00:30)
[2017-06-17] MEDS ORDERED: ACET500C5 PO (00:30)
[2017-06-17 01:09] VITALS: BP 116/70; PULSE 96; RESP 18; TEMP 98
== END 2017-06-17 01:24 | disposition home or self-care (01) ==
LOC: FTE 20:52
DX: N12 Tubulo-interstitial nephritis, not specified as acute or chronic (principal); E11.65 Type 2 diabetes mellitus with hyperglycemia
CPT/HCPCS: 74176; 80053; 81001; 81003; 82962; 83690; 85025; J0696; J2270; J2405; J7030; 36415; 96374; 96375

== ENCOUNTER 2017-09-27 22:19 | Emergency (ER) | END 2017-09-27 23:48 | disposition home or self-care (01) ==

== ENCOUNTER 2018-05-18 21:03 | Emergency (ER) | END 2018-05-19 04:34 | disposition home or self-care (01) ==

== ENCOUNTER 2018-05-21 17:07 | Emergency (ER) | END 2018-05-21 20:55 | disposition home or self-care (01) ==

== ENCOUNTER 2018-11-01 19:38 | Emergency (ER) | payer MEDICAID ==
[~2018-11-01] VITALS: Ht 154.9 cm; Wt 58.4 kg
[~2018-11-01 19:38] MED LIST: ACET500C5 PO; AMOX1TAB10 PO; BENZ-6 PO; CIPR500T4 PO; HYDR-4011 PO; IBUP-1542 PO; IBUP-1561 PO; OSEL75CA23 PO; PHEN-538 PO
[2018-11-01 19:47] VITALS: Ht 154.9 cm; Wt 58.4 kg
--- NOTE | 2018-11-01 22:52 | ERD ---
ER Documentation Chief Complaint Chief Complaint flu like s/s; cough, headache, gen body pain x1wk HPI This is a 28-year-old female patient who presents to the emergency room with complaint of 2 days of flulike symptoms including body pain, headache, chills, sore throat, cough, no dysuria. Diarrhea x1, vomiting x2 today. No sick contacts, no recent travel. ROS All systems reviewed and are negative except as per history of present illness. Medications Home Meds Active Scripts Ibuprofen* (Motrin*) 600 Mg Tab, 600 MG PO Q8, #15 TAB Prov:SONI HAMILTON MD 05/21/18 Acetaminophen* (Tylophen*) 500 Mg Capsule, 1 CAP PO Q6H PRN for PAIN AND OR EL EVATED TEMP, #20 CAP Prov:MAXI,MELODY 05/19/18 Benzonatate* (Tessalon Perle*) 100 Mg Capsule, 100 MG PO Q8H PRN for COUGH, #20 CAP Prov:PASILABANSHAYLEEAR F 09/27/17 Acetaminophen* (Tylophen*) 500 Mg Capsule, 2 CAP PO Q8H PRN for PAIN AND OR ELEVATED TEMP, #20 CAP Prov:PASILABANSHAYLEEAR F 09/27/17 Ibuprofen* (Motrin*) 600 Mg Tab, 600 MG PO Q6H PRN for PAIN AND OR ELEVATED TEMP, #30 TAB Prov:PASILAADOREJAKOB F 09/27/17 Oseltamivir Phosphate* (Tamiflu*) 75 Mg Capsule, 75 MG PO BID for 5 Days, CAP Prov:PASILABANSHAYLEEAR F 09/27/17 Amoxicillin/Potassium Clav (Amox-Clav 875-125 mg Tablet) 875-125 mg Tab, 1 TAB PO BID for 10 Days, #20 TAB Prov:PASILABANSHAYLEEAR F 09/27/17 Acetaminophen* (Tylophen*) 500 Mg Capsule, 1 CAP PO Q6H PRN for PAIN AND OR ELEVATED TEMP, #20 CAP Prov:IRAIDA ROMERO NP 06/17/17 Ibuprofen* (Motrin*) 400 Mg Tab, 400 MG PO Q6H PRN for PAIN AND OR ELEVATED TEMP, #30 TAB Prov:IRAIDA ROMERO NP 06/17/17 Hydrocodone/Acetaminophen ([place] 5-325 Tablet) 1 Each Tablet, 1 TAB PO Q6H PRN for SEVERE PAIN LEVEL 7-10, #20 TAB Prov:IRAIDA ROMERO NP 06/17/17 Phenazopyridine Hcl* (Pyridium*) 200 Mg Tab, 200 MG PO TID PRN for URINARY PAIN, #6 TAB Prov:IRAIDA ROMERO NP 06/17/17 Ciprofloxacin Hcl* (Ciprofloxacin Hcl*) 500 Mg Tablet, 500 MG PO BID for 10 Days, TAB Prov:IRAIDA ROMERO NP 06/17/17 Reported Medications [none] Unknown Strength No Conflict Check 06/16/17 Allergies Allergies: Coded Allergies: No Known Allergy (Unverified , 05/18/18) PMhx/Soc History of Surgery: Yes (OBGYN Molar ) Anesthesia Reaction: No Hx Neurological Disorder: No Hx Respiratory Disorders: No Hx Cardiac Disorders: No Hx Psychiatric Problems: No Hx Miscellaneous Medical Probl: Yes (COMPLETE MOLAR / Diabetes) Hx Alcohol Use: Yes (Socially) Hx Substance Use: No Hx Tobacco Use: No FmHx Family History: diabetes Physical Exam Vitals Vital Signs Date Temp Pulse Resp B/P (MAP) Pulse Ox O2 O2 Flow FiO2 Time Delivery Rate 11/02/18 98.2 92 17 100/56 98 Room Air 03:27 (71) 11/01/18 98.1 22:58 11/01/18 100.8 102 19 117/58 99 19:47 (77) Physical Exam Const: No acute distress Head: Atraumatic Eyes: Normal Conjunctiva, PERRL ENT: Normal External Ears, Nose and Mouth, pharynx pink, no lesions, no exudate, tonsils +2 Neck: Full range of motion. No meningismus. Resp: Clear to auscultation bilaterally Cardio: Regular rate and rhythm, no murmurs Abd: Soft, tender suprapubic, non distended. Normal bowel sounds Skin: No petechiae or rashes Back: No midline or flank tenderness Ext: No cyanosis, or edema Neur: Awake and alert Psych: Normal Mood and Affect Result Diagram: 11/02/18 0156 11/02/18 0156 Results 24 hrs Laboratory Tests Test 11/01/18 22:52 11/02/18 01:10 11/02/18 01:56 11/02/18 02:54 Urine Color YELLOW Urine Clarity SLIGHTLY CLOUDY Urine pH 6.0 Urine Specific 1.037 Ruth Urine Ketones 2+ mg/dL Urine Nitrite NEGATIVE mg/dL Urine Bilirubin NEGATIVE mg/dL Urine NEGATIVE mg/dL Urobilinogen Urine Leukocyte NEGATIVE Nabil/ul Esterase Urine Microscopic 1 /HPF RBC Urine Microscopic 5 /HPF WBC Urine Squamous FEW /HPF Epithelial Cells Urine Bacteria FEW /HPF Urine Hemoglobin NEGATIVE mg/dL Urine Glucose 3+ mg/dL Urine Total NEGATIVE mg/dl Protein Urine NEGATIVE Test Bedside Glucose 349 mg/dL 332 mg/dL White Blood Count 15.5 10^3/ul Red Blood Count 4.48 10^6/ul Hemoglobin 13.7 g/dl Hematocrit 39.9 % Mean Corpuscular 89.1 fl Volume Mean Corpuscular 30.6 pg Hemoglobin Mean Corpuscular 34.3 g/dl Hemoglobin Concen t Red Cell 11.9 % Distribution Width Platelet Count 245 10^3/UL Mean Platelet 10.0 fl Volume Immature 0.600 % Granulocytes % Neutrophils % 82.7 % Lymphocytes % 7.7 % Monocytes % 8.5 % Eosinophils % 0.2 % Basophils % 0.3 % Nucleated Red 0.0 /100WBC Blood Cells % Immature 0.100 10^3/ul Granulocytes # Neutrophils # 12.8 10^3/ul Lymphocytes # 1.2 10^3/ul Monocytes # 1.3 10^3/ul Eosinophils # 0.0 10^3/ul Basophils # 0.0 10^3/ul Nucleated Red 0.0 10^3/ul Blood Cells # Sodium Level 138 mmol/L Potassium Level 3.8 mmol/L Chloride Level 102 mmol/L Carbon Dioxide 22 mmol/L Level Anion Gap 14 Blood Urea 11 mg/dl Nitrogen Creatinine 0.37 mg/dl Est Glomerular > 60 mL/min Filtrat Rate mL/min Glucose Level 368 mg/dl Calcium Level 9.5 mg/dl Total Bilirubin 0.7 mg/dl Direct Bilirubin 0.00 mg/dl Indirect 0.7 mg/dl Bilirubin Aspartate Amino 22 IU/L Transf (AST/SGOT) Alanine 47 IU/L Aminotransferase (ALT/SGPT) Alkaline 145 IU/L Phosphatase Total Protein 7.3 g/dl Albumin 4.1 g/dl Globulin 3.20 g/dl Albumin/Globulin 1.28 Ratio Current Medications Medications Dose Sig/Windy Start Time Status Last (Trade) Ordered Route PRN Stop Time Admin Dose Reason Admin Ibuprofen 600 mg ONCE ONCE 11/01/18 DC 11/01/18 (Motrin) PO 23:00 22:58 11/01/18 23:01 Sodium 1,000 ml @ Q1H STAT 11/02/18 DC 11/02/18 Chloride 1,000 mls/hr IV 01:41 01:56 11/02/18 02:40 Ondansetron 4 mg ONCE STAT 11/02/18 DC 11/02/18 HCl (Zofran IV 01:41 01:55 Inj) 11/02/18 01:45 Procedures/MDM This is a 28 yo female patient who presents to the ER with 2 days of flulike symptoms. Patient states she is diabetic but does not does not take her diabetic medications. ED COURSE: The patient was stable throughout ED course. I kept the patient and/or family informed of laboratory and diagnostic imaging results throughout the ED course. MEDICATIONS GIVEN: NS, zofran, ibuprofen Patient tolerated medication well with no adverse reactions. MDM: Patient presents with complaint of flulike symptoms including diarrhea, headache, vomiting, nausea. Initially patient's presentation appeared to be viral in nature which it still may be however blood glucose check shows patient to have hyperglycemia. Patient was hydrated, observed, assessed for diabetic complications. No evidence at this time of diabetic ketoacidosis, hyperosmolar syndrome, or severe systemic infection. Patient's diabetic symptoms have stabilized here in the emergency department and appear appropriate for outpatient management. And states she has metformin at home and will reinitiate taking the medication twice daily. She also states she has a primary care provider whom she will make appointment with tomorrow. DISPOSITION: The patient has been discharge home to follow-up with community physician. Departure Diagnosis: Primary Impression: Hyperglycemia Condition: Stable Patient Instructions: Hyperglycemia (High Blood Sugar) Referrals: [facility] Additional Instructions: Thank you very much for allowing us to participate in your care. Your health and safety is our top priority at [facility]. Call your primary care doctor TOMORROW for an appointment during the next 2-4 days and bring all the information and medications prescribed. Have prescriptions filled and follow precisely the directions on the label. If the symptoms get worse and your provider is unavailable, return to the Emergency Department immediately. TAKE YOUR METFORMIN TWICE DAILY. INCREASE HYDRATION TO 1-2 L/DAY. FOLLOW-UP WITH YOUR DOCTOR IN THE NEXT 1-2 DAYS RETURN TO ER WITH ABDOMINAL PAIN, VOMITING, FEVER MAYELIN HERNÁNDEZ NP Nov 01, 2018 22:52
[2018-11-01] MEDS ORDERED: IBUPROFEN 600 MG TAB PO ONE (23:00)
[2018-11-02] MEDS ORDERED: SOD CHLORIDE 0.9% 1,000 ML IV STA (01:41)
[2018-11-02] MEDS ORDERED: ONDANSETRON 4 MG INJ IV STA (01:41)
[2018-11-02 03:27] VITALS: BP 100/56; PULSE 92; RESP 17
== END 2018-11-02 03:30 | disposition home or self-care (01) ==
LOC: FTE 19:38
DX: E11.65 Type 2 diabetes mellitus with hyperglycemia (principal)
CPT/HCPCS: 36415; 80053; 81001; 82962; 84703; 85025; 87400; 96374; J2405; J7030; Z7502; Z7610; 81003